=== PATIENT | female | born 1990 | race Caucasian/White ===

== ENCOUNTER 2017-12-04 05:58 | Day surgery (SDC) | payer OTHER ==
[~2017-12-04] VITALS: Ht 170.2 cm; Wt 57.6 kg
[~2017-12-04 05:58] MED LIST: BENADRYL25 MG PO; BENADRYL50 MG PO; DOLOGESIC CAPSU1 CAP PO; INTESTINEX680 MG PO; MEDROL4 MG PO; ZANTAC150 M3 PO
[2017-12-04] MEDS ORDERED: PERCOCET 5-3251 EACH PO (12:47)
[2017-12-04] MEDS ORDERED: NUPERCAINAL56.7 GM TOP (12:47)
== END 2017-12-04 14:00 | disposition home or self-care (01) ==
LOC: ER 05:58 → O/R 07:38 → SEC-K 07:38 → O/R 09:04 → SEC-K 09:04 → CIR.AMB 11:00
DX: K64.4 Residual hemorrhoidal skin tags (principal)

== ENCOUNTER 2018-06-21 23:11 | Emergency (ER) | payer OTHER ==
[~2018-06-21] VITALS: Ht 170.2 cm; Wt 56.2 kg
[~2018-06-21 23:11] MED LIST changes: +NUPERCAINAL56.7 GM TOP; +PERCOCET 5-3251 EACH PO
== END 2018-06-22 01:48 | disposition home or self-care (01) ==
LOC: ER 23:11
DX: T61.91XA Toxic effect of unspecified seafood, accidental (unintentional), initial encounter (principal); R11.2 Nausea with vomiting, unspecified; Y92.89 Other specified places as the place of occurrence of the external cause

== ENCOUNTER 2018-11-15 02:36 | Emergency (ER) | payer OTHER ==
[~2018-11-15] VITALS: Ht 170.2 cm; Wt 55.8 kg
[2018-11-15] MEDS ORDERED: IMODIUM A-D2 M2 PO (08:42)
== END 2018-11-15 08:53 | disposition home or self-care (01) ==
LOC: ER 02:36
DX: K52.9 Noninfective gastroenteritis and colitis, unspecified (principal)

== ENCOUNTER → 2019-02-18 | Emergency (ER) | payer OTHER ==
[~2019-02-18] VITALS: Ht 170.2 cm; Wt 54.4 kg
[~2019-02-18] MED LIST changes: +IMODIUM A-D2 M2 PO
== END | disposition home or self-care (01) ==
LOC: ER 21:03
DX: T78.49XA Other allergy, initial encounter (principal); B34.9 Viral infection, unspecified; X58.XXXA Exposure to other specified factors, initial encounter

== ENCOUNTER 2019-05-05 05:58 | Emergency (ER) | payer OTHER ==
[~2019-05-05] VITALS: Ht 170.2 cm; Wt 55.3 kg
[2019-05-05] MEDS ORDERED: DOLOGEN CAPLET1 EACH PO (07:18)
[2019-05-05] MEDS ORDERED: NORFLEX100MG PO (07:18)
== END 2019-05-05 07:39 | disposition home or self-care (01) ==
LOC: ER 05:58
DX: M62.830 Muscle spasm of back (principal)

== ENCOUNTER 2019-08-07 13:34 | Outpatient (CLI) | payer OTHER ==
[~2019-08-07 13:34] MED LIST changes: +DOLOGEN CAPLET1 EACH PO; +NORFLEX100MG PO
== END 2019-08-07 13:46 | disposition home or self-care (01) ==
LOC: SONOGRAMA 13:34
DX: N94.0 Mittelschmerz (principal); R10.2 Pelvic and perineal pain; N94.89 Other specified conditions associated with female genital organs and menstrual cycle

== ENCOUNTER 2020-01-18 14:09 | Outpatient (CLI) | payer OTHER | END 2020-01-18 14:21 | disposition home or self-care (01) | LOC: SONOGRAMA 14:09 → MAMO-SONO 15:15 | PROVIDERS: ATTEND Obstetrics & Gynecology | DX: N94.89 Other specified conditions associated with female genital organs and menstrual cycle (principal); N94.0 Mittelschmerz; R10.2 Pelvic and perineal pain ==

== ENCOUNTER 2020-02-10 19:12 | Emergency (ER) | payer OTHER ==
[~2020-02-10] VITALS: Ht 170.2 cm; Wt 53.5 kg
[2020-02-11] MEDS ORDERED: RECTICARE30 GM RECTAL (00:56)
[2020-02-11] MEDS ORDERED: SURFAK240 M1 PO (00:56)
== END 2020-02-11 01:03 | disposition home or self-care (01) ==
LOC: ER 19:12
DX: K64.8 Other hemorrhoids (principal); Z03.818 Encounter for observation for suspected exposure to other biological agents ruled out

== ENCOUNTER 2020-04-18 03:14 | Inpatient (IN) | payer OTHER ==
[~2020-04-18] VITALS: Ht 165.1 cm; Wt 120.0 kg
[~2020-04-18 03:14] MED LIST changes: +RECTICARE30 GM RECTAL; +SURFAK240 M1 PO
== END 2020-04-20 10:23 | disposition home or self-care (01) | DRG 833 ==
LOC: ER 03:14 → SEC-K 07:22 → OB/GYN 07:22
PROVIDERS: ADMIT Obstetrics & Gynecology; ATTEND Obstetrics & Gynecology
DX: O21.1 Hyperemesis gravidarum with metabolic disturbance (principal); O99.611 Diseases of the digestive system complicating pregnancy, first trimester; K52.89 Other specified noninfective gastroenteritis and colitis; Z3A.10 10 weeks gestation of pregnancy

== ENCOUNTER 2020-11-12 06:01 | Inpatient (IN) | payer OTHER ==
[~2020-11-12] VITALS: Ht 170.2 cm; Wt 70.3 kg
[2020-11-12] MEDS ORDERED: PEPCID AC20 MG PO (08:45)
[2020-11-12] MEDS ORDERED: ZOFRAN8 MG PO (08:45)
== END 2020-11-15 12:42 | disposition home or self-care (01) | DRG 788 ==
LOC: LDR 06:01 → OB/GYN 11-13 10:07
PROVIDERS: ADMIT Obstetrics & Gynecology; ATTEND Obstetrics & Gynecology
PROC: 10907ZC Drainage of Amniotic Fluid, Therapeutic from Products of Conception, Via Natural or Artificial Opening (ICD-10-PCS; 2020-11-13)
PROC: 4A1HXFZ Monitoring of Products of Conception, Cardiac Rhythm, External Approach (ICD-10-PCS; 2020-11-13)
PROC: 10D00Z1 Extraction of Products of Conception, Low, Open Approach (ICD-10-PCS; principal; 2020-11-13 07:00)
DX: O76 Abnormality in fetal heart rate and rhythm complicating labor and delivery (principal); O48.0 Post-term pregnancy; O24.420 Gestational diabetes mellitus in childbirth, diet controlled; Z3A.40 40 weeks gestation of pregnancy; Z37.0 Single live birth

== ENCOUNTER 2023-03-21 17:22 | Emergency (ER) | payer OTHER ==
[~2023-03-21] VITALS: Ht 170.2 cm; Wt 56.7 kg
[~2023-03-21 17:22] MED LIST changes: +PEPCID AC20 MG PO; +ZOFRAN8 MG PO
[2023-03-21 19:59] LABS: HEMATOCRIT 36.4 % (36.0-45.00); HEMOGLOBIN 11.8 g/dL (12.0-15.00); MEAN CELL VOLUME 77.8 fL (80.00-100.00); MEAN CORPUSCULAR HEMOGLOBIN 25.2 pg (27.00-32.0); MEAN CORPUSCULAR HGB CONC 32.4 g/dl (32.0-36.0); PLATELET COUNT 343 K/uL (150-450); RED BLOOD COUNT 4.69 M/uL (4.00-6.00); RED CELL DISTRIBUTION WIDTH 15.9 % (11.5-14.5)
== END 2023-03-21 20:32 | disposition home or self-care (01) ==
LOC: ER 17:23
PROVIDERS: General Practice
DX: R07.81 Pleurodynia (principal); R05.9 Cough, unspecified; Z88.6 Allergy status to analgesic agent

== ENCOUNTER 2023-03-25 05:50 | Day surgery (SDC) | payer OTHER ==
[2023-03-08 09:24] LABS: HEMATOCRIT 35.6 % (36.0-45.00); HEMOGLOBIN 11.7 g/dL (12.0-15.00); MEAN CELL VOLUME 77.4 fL (80.00-100.00); MEAN CORPUSCULAR HEMOGLOBIN 25.4 pg (27.00-32.0); MEAN CORPUSCULAR HGB CONC 32.8 g/dl (32.0-36.0); PLATELET COUNT 220 K/uL (150-450); RED BLOOD COUNT 4.61 M/uL (4.00-6.00); RED CELL DISTRIBUTION WIDTH 16.7 % (11.5-14.5)
[2023-03-08 09:32] LABS: PH,URINE 6.5 (5.0-8.0); URINE APPEARANCE Clear; URINE BILIRRUBIN Negative (NEGATIVE); URINE BLOOD Large; URINE COLOR Yellow; URINE GLUCOSE Negative (NEGATIVE); URINE LEUKOCYTE Trace; URINE NITRATE Negative; URINE PROTEIN Negative (NEGATIVE)
[2023-03-08 09:36] LABS: URINE BACTERIA 197.8 uL (0.0-1933); URINE EPITHELIAL CELLS 20.3 uL (0.0-38.8); URINE RBC 453.8 uL (0.0-20.8); URINE WBC 20.6 uL (0.0-23.2)
[2023-03-08 09:59] LABS: ALBUMIN 3.8 gm/dL (3.4-5.0); BILIRUBIN TOTAL 0.53 mg/dL (0.3-1.2); CALCIUM 8.9 mg/dL (8.5-10.1); CREATININE SERUM 0.8 mg/dL (0.55-1.02); GFR 82.61; GLOBULINA 3.9 G/DL (2.4-3.5); POTASSIUM 3.42 mEq/L (3.5-5.1); TOTAL PROTEIN 7.7 gm/dL (6.4-8.2)
[2023-03-08 10:05] LABS: INR 1.01; PARTIAL THROMBOPLASTIN TIME 28.2 SECONDS (22.0-34.0); PROTHROMBIN TIME 10.6 SECONDS (9.0-11.5)
[2023-03-25] MEDS ORDERED: KETO10TA2 PO (09:55)
[2023-03-25] MEDS ORDERED: TRAM1TAB98 PO (09:55)
== END 2023-03-25 14:20 | disposition home or self-care (01) ==
LOC: CIR.AMB 05:50
PROVIDERS: ATTEND Surgery
DX: K64.2 Third degree hemorrhoids (principal); Z88.8 Allergy status to other drugs, medicaments and biological substances; Z20.822 Contact with and (suspected) exposure to COVID-19; Z88.0 Allergy status to penicillin; K62.0 Anal polyp

== ENCOUNTER 2023-04-24 13:57 | Outpatient (CLI) | payer OTHER ==
[~2023-04-24 13:57] MED LIST changes: +KETO10TA2 PO; +TRAM1TAB98 PO
== END 2023-04-24 14:11 | disposition home or self-care (01) ==
LOC: RAD 13:57
PROVIDERS: ATTEND Internal Medicine
DX: M54.59 Other low back pain (principal); E55.9 Vitamin D deficiency, unspecified; E03.9 Hypothyroidism, unspecified; F41.9 Anxiety disorder, unspecified; K21.9 Gastro-esophageal reflux disease without esophagitis; M54.31 Sciatica, right side; M46.47 Discitis, unspecified, lumbosacral region; M51.9 Unspecified thoracic, thoracolumbar and lumbosacral intervertebral disc disorder

== ENCOUNTER 2024-03-24 09:00 | Inpatient (IN) | payer OTHER ==
[~2024-03-24] VITALS: Ht 170.2 cm; Wt 72.6 kg
[2024-03-24 11:34] LABS: HEMATOCRIT 29.6 % (36.0-45.00); HEMOGLOBIN 9.6 g/dL (12.0-15.00); MEAN CELL VOLUME 71.5 fL (80.00-100.00); MEAN CORPUSCULAR HEMOGLOBIN 23.2 pg (27.00-32.0); MEAN CORPUSCULAR HGB CONC 32.4 g/dl (32.0-36.0); PLATELET COUNT 244 K/uL (150-450); RED BLOOD COUNT 4.14 M/uL (4.00-6.00); RED CELL DISTRIBUTION WIDTH 15.4 % (11.5-14.5)
[2024-03-24 11:41] LABS: INR < 0.93; PARTIAL THROMBOPLASTIN TIME 28.4 SECONDS (22.0-34.0); PROTHROMBIN TIME 9.9 SECONDS (9.0-11.5)
[2024-03-24 11:55] LABS: ALBUMIN 2.8 gm/dL (3.4-5.0); BILIRUBIN TOTAL 0.42 mg/dL (0.3-1.2); CALCIUM 8.5 mg/dL (8.5-10.1); CREATININE SERUM 0.68 mg/dL (0.55-1.02); GFR 99.04; POTASSIUM 3.71 mEq/L (3.5-5.1); TOTAL PROTEIN 6.8 gm/dL (6.4-8.2)
[2024-03-31 18:58] LABS: RH NEGATIVE
[2024-04-01] MEDS ORDERED: DICLEGIS DR 101 EACH PO (06:03)
[2024-04-01 06:04] VITALS: BP 111/73
[2024-04-01] MEDS ORDERED: ERYTHROMYCIN BASE OPHT 1GM EACH TUBE OP ONE (10:02)
[2024-04-01] MEDS ORDERED: OXYTOCIN 10 UNITS/ML VIAL ONE ×2 (10:03→14:35)
[2024-04-01] MEDS ORDERED: CEFOXITIN SODIUM 2,000 MG VIAL IV ONE ×2 (10:20→11:30)
[2024-04-01] MEDS ORDERED: TRIAMCINOLONE ACETONIDE 40 MG/ML VIAL ONE ×2 (11:11→12:05)
[2024-04-01] MEDS ORDERED: CITRIC ACID/SODIUM CITRATE 30 ML BLIST.PACK PO ONE ×2 (11:12→11:30)
[2024-04-01] MEDS ORDERED: TRIAMCINOLONE ACETONIDE 40 MG/ML VIAL IM ONE (11:30)
[2024-04-01] MEDS ORDERED: OXYTOCIN 10 UNITS/ML VIAL IV ONE (11:30)
[2024-04-01] MEDS ORDERED: MORPHINE SULFATE 4 MG/ML VIAL IV ONE (13:25)
[2024-04-01] MEDS ORDERED: ACETAMINOPHEN 500 MG GEL..CAP PO SCH (13:54)
[2024-04-01] MEDS ORDERED: MEPERIDINE HCL/PF 25 MG/ML VIAL IV SCH (13:55)
[2024-04-01] MEDS ORDERED: OXYTOCIN 1,000 ML IV ONE (14:00)
[2024-04-01 15:58] VITALS: BP 103/56
[2024-04-01] MEDS ORDERED: PROMETHAZINE HCL 25 MG/ML AMPUL IV SCH (17:00)
[2024-04-02] VITALS: BP 108/67
[2024-04-02 07:13] LABS: HEMATOCRIT 27.7 % (36.0-45.00); MEAN CELL VOLUME 70.4 fL (80.00-100.00); MEAN CORPUSCULAR HEMOGLOBIN 22.8 pg (27.00-32.0); MEAN CORPUSCULAR HGB CONC 32.4 g/dl (32.0-36.0); PLATELET COUNT 235 K/uL (150-450); RED BLOOD COUNT 3.94 M/uL (4.00-6.00); RED CELL DISTRIBUTION WIDTH 16.3 % (11.5-14.5)
[2024-04-02] MEDS ORDERED: FF) RHO(D) IMMUNE GLOBULIN (POM) IM SCH (08:30)
[2024-04-02] MEDS ORDERED: SIMETHICONE 125 MG CAPSULE PO SCH (09:00)
[2024-04-02] MEDS ORDERED: PNV,CALCIUM 72/IRON/FOLIC ACID 1 TAB TABLET PO SCH (09:00)
[2024-04-02] MEDS ORDERED: IRON FUM,PS/FOLIC/BCOMP,C NO.9 1 CAP CAPSULE PO SCH (09:00)
[2024-04-02] MEDS ORDERED: GABAPENTIN 300 MG CAPSULE PO PRN (09:00)
[2024-04-02] MEDS ORDERED: DOCUSATE SODIUM 100MG CAP PO SCH (09:00)
[2024-04-02 09:09] VITALS: BP 102/66
[2024-04-02 15:56] VITALS: BP 105/64; O2SAT 100
[2024-04-02 20:53] VITALS: BP 106/63
[2024-04-03 01:09] VITALS: BP 108/62
[2024-04-03 08:10] VITALS: BP 100/60
== END 2024-04-03 12:26 | disposition home or self-care (01) | DRG 788 ==
LOC: OB/GYN 04-01 05:18 → O/R 04-01 05:18 → SURH 04-01 09:00 → OB/GYN 04-01 12:38 → SURH 04-01 13:00 → OB/GYN 04-03 12:26
PROVIDERS: Obstetrics & Gynecology Gynecology; ADMIT Obstetrics & Gynecology Maternal & Fetal Medicine; ATTEND Obstetrics & Gynecology Maternal & Fetal Medicine
PROC: 0HB7XZZ Excision of Abdomen Skin, External Approach (ICD-10-PCS; 2024-04-01)
PROC: 4A1HXCZ Monitoring of Products of Conception, Cardiac Rate, External Approach (ICD-10-PCS; 2024-04-01)
PROC: 10D00Z1 Extraction of Products of Conception, Low, Open Approach (ICD-10-PCS; principal; 2024-04-01 13:00)
DX: O34.211 Maternal care for low transverse scar from previous cesarean delivery (principal); O99.72 Diseases of the skin and subcutaneous tissue complicating childbirth; L91.0 Hypertrophic scar; Z3A.39 39 weeks gestation of pregnancy; Z37.0 Single live birth

== ENCOUNTER 2024-11-17 22:36 | Emergency (ER) | payer OTHER ==
[~2024-11-17] VITALS: Ht 170.2 cm; Wt 61.2 kg
[~2024-11-17 22:36] MED LIST changes: +DICLEGIS DR 101 EACH PO
[2024-11-17 23:35] VITALS: BP 126/77; O2SAT 100
[2024-11-18] MEDS ORDERED: PROMETHAZINE HCL 50 MG/ML AMPUL IM STA (01:10)
[2024-11-18] MEDS ORDERED: FAMOTIDINE/PF 20 MG/2 ML VIAL IV PUSH STA (01:10)
[2024-11-18] MEDS ORDERED: 0.9 % SODIUM CHLORIDE 1,000 ML IV ONE (01:15)
[2024-11-18] MEDS ORDERED: PROMETHAZINE HCL 50 MG/ML AMPUL IM ONE (02:06)
[2024-11-18] MEDS ORDERED: FAMOTIDINE/PF 20 MG/2 ML VIAL ONE (02:06)
[2024-11-18 02:17] LABS: BASO % 0.1 % (0.1-1.2); EOS # 0.01 (0.04-0.54); EOS % 0.1 % (0.7-7.0); LYMPH # 0.38 (1.18-3.74); LYMPH % 4.0 % (19.3-53.1); MEAN PLATELET VOLUME 10.10 fl (9.4-12.4); MONO # 0.19 (0.24-0.82); MONO % 2.0 % (4.7-12.5); NEUT # 8.93 (1.56-6.13); NEUT % 93.6 % (34.0-71.1); RED CELL DISTRIBUTION WIDTH 13.9 % (11.6-14.4)
[2024-11-18 02:40] LABS: ALT/SGPT 20 U/L (12-78); AST/SGOT 19 U/L (15-37); BILIRUBIN TOTAL 0.69 mg/dL (0.3-1.2); BUN CREA RATIO 19 (7.0-25.0); CREATININE SERUM 0.67 mg/dL (0.55-1.02); GFR 100.16; GLOBULINA 4.0 G/DL (2.4-3.5); GLUCOSE FASTING 102 mg/dL (65-100); OSMOLALITY SERUM 283 MOSM/KG (275-295)
[2024-11-18 02:43] LABS: HCG QUANTITATIVE < 1 mUI/mL (1-3)
[2024-11-18 04:17] LABS: URINE APPEARANCE Clear; URINE BILIRRUBIN Negative (NEGATIVE); URINE BLOOD Negative; URINE COLOR Yellow; URINE GLUCOSE Negative (NEGATIVE); URINE LEUKOCYTE Negative; URINE NITRATE Negative; URINE PROTEIN Trace (NEGATIVE); URINE UROBILINOGEN 0.2 E.U./dl
[2024-11-18 04:21] LABS: URINE BACTERIA 442.7 uL (0.0-1933); URINE EPITHELIAL CELLS 10.9 uL (0.0-38.8); URINE RBC 6.1 uL (0.0-20.8); URINE WBC 5.8 uL (0.0-23.2)
[2024-11-18 04:23] LABS: URINE CAST 0.43 uL (0.0-1.40); URINE KETONE >=160 (NEGATIVE)
[2024-11-18] MEDS ORDERED: PEPCID40 MG PO (04:29)
[2024-11-18] MEDS ORDERED: DICLEGIS DR 101 EACH PO (04:29)
== END 2024-11-18 05:52 | disposition home or self-care (01) ==
LOC: ER 22:36
PROVIDERS: General Practice
DX: R11.10 Vomiting, unspecified (principal); E86.0 Dehydration; R10.9 Unspecified abdominal pain; Z88.6 Allergy status to analgesic agent